=== PATIENT | female | born 1995 | race Caucasian/White ===

== ENCOUNTER 2016-10-07 10:35 | Emergency (ER) | payer OTHER ==
[~2016-10-07] VITALS: Wt 92.0 kg
[~2016-10-07 10:35] MED LIST: ACET500C5 PO; AUG875 PO; DICY10CA60 PO; FLUT16SP24 NASAL; HYDR-3498 PO; IBUP-1542 PO; ONDA4TAB35 PO; PREN1TAB31 PO
--- NOTE | 2016-10-07 11:28 | ERD ---
ER Documentation Chief Complaint Date/Time DATE: 10/07/16 TIME: 11:27 Chief Complaint low abd cramping and mild vaginal bleeding for 2 days. no unusual n/v HPI 20-year-old female who is A1 approximately 8 weeks with last menstrual period on August 13, 2016 comes emergency room with vaginal spotting as well as pelvic cramping for the past 3 days. She states that it is a slight amount of blood usually noted when she wipes. She did go to her OB this morning, they took her blood and advised that she goes to the emergency room for further evaluation. She has not had any fevers or chills. She has had one miscarriage in the past at around 6 weeks. ROS All systems reviewed and are negative except as per history of present illness. Medications Home Meds Active Scripts Acetaminophen* (Tylophen*) 500 Mg Capsule, 1 CAP PO Q6H Y for PAIN AND OR ELEVATED TEMP, #15 CAP Prov:DWAYNE AGUERO MD 05/08/16 Vits #90-Iron Fum-FA ( Formula) 1 Each Tablet, 1 TAB PO DAILY, #100 TAB Prov:DWAYNE AGUERO MD 05/08/16 Hydrocodone Bit-Acetaminophen* ([place]*) 5-325 Mg Tab, 1 TAB PO Q6 Y for SEVERE PAIN LEVEL 7-10, #10 TAB Prov:LUCY BLACKBURN NP 11/10/15 Ondansetron Hcl* (Zofran* ODT) 4 mg -ODT Tab.disper, 4 MG PO Q8 Y for NAUSEA AND /OR VOMITING, #10 TAB Prov:LUCY BLACKBURN NP 11/10/15 Dicyclomine Hcl* (Bentyl*) 10 Mg Capsule, 10 MG PO QID for abdominal cramping, # 30 CAP Prov:LUCY BLACKBURN NP 11/10/15 Acetaminophen* (Tylophen*) 500 Mg Capsule, 1 CAP PO Q6H Y for PAIN AND OR ELEVATED TEMP, #20 CAP Prov:JOSE PERSAUD 06/29/15 Ibuprofen* (Motrin*) 600 Mg Tab, 600 MG PO Q6 for 5 Days, TAB Prov:DWAYNE AGUERO MD 03/15/15 Fluticasone Propionate* (Flonase* Nasal) 50 Mcg/[place] - 16 Gm [place].susp, 1 SPRAY NASAL DAILY, #1 BOTTLE Prov:ADAN BAINS PA-C 03/01/15 Amoxicillin-Clavulanate K* (Augmentin*) 875 Mg Tab, 875 MG PO BID for 10 Days Prov:ADAN BAINS PA-C 03/01/15 Allergies Allergies: Coded Allergies: No Known Allergy (Unverified , 06/28/15) PMhx/Soc History of Surgery: No Anesthesia Reaction: No Hx Neurological Disorder: No Hx Respiratory Disorders: No Hx Cardiac Disorders: No Hx Psychiatric Problems: No Hx Miscellaneous Medical Probl: No Hx Alcohol Use: No Hx Substance Use: No Hx Tobacco Use: No Physical Exam Vitals Vital Signs Date Time Temp Pulse Resp B/P Pulse Ox O2 Delivery O2 Flow Rate FiO2 10/07/16 10:37 98.7 89 20 122/55 100 Physical Exam General: Well-developed, well-nourished. The patient appears in no acute distress. HEENT: Head is normocephalic, atraumatic. No scleral icterus. Neck: Supple. Nontender. Lungs: Clear to auscultation. Normal air movement. Heart: Regular rate and rhythm. S1 and S2 are normal. No murmurs, gallops, or rubs. Abdomen: Nondistended. Soft, no tenderness. Extremities: No clubbing or cyanosis. Moving extremities x 4. No weakness. Neurologic: Alert and oriented 3. No focal deficits. Normal speech and gait. Skin: Normal turgor. No rash or lesions. Result Diagram: 10/07/16 1155 Results 24 hrs Laboratory Tests Test 10/07/16 11:45 10/07/16 11:55 Urine Bilirubin NEGATIVE Urine Clarity CLEAR Urine Color LT. YELLOW Urine Glucose NEGATIVE% Urine Hemoglobin TRACE Urine Ketones NEGATIVE Urine Leukocyte Esterase NEGATIVE Urine Microscopic RBC 0-2/HPF Urine Microscopic WBC NONE SEEN/HPF Urine Nitrite NEGATIVE Urine Specific [place] 1.010 Urine Squamous Epithelial Cells MODERATE Urine Total Protein NEGATIVE Urine Urobilinogen 0.2 E.U./dL Urine pH 7.5 Basophils # 0.010^3/ul Basophils % 0.3% Beta HCG, Quantitative 96627.0mIU/ml Eosinophils # 0.010^3/ul Eosinophils % 0.1% Hematocrit 36.9% Hemoglobin 12.7g/dl Lymphocytes # 1.810^3/ul Lymphocytes % 19.9% Mean Corpuscular Hemoglobin 30.0pg Mean Corpuscular Hemoglobin Concent 34.4g/dl Mean Corpuscular Volume 87.4fl Mean Platelet Volume 8.2fl Monocytes # 0.510^3/ul Monocytes % 5.9% Neutrophils # 6.610^3/ul Neutrophils % 73.8% Nucleated Red Blood Cells # 0.010^3/ul Nucleated Red Blood Cells % 0.0/100WBC Platelet Count 94391^3/UL Red Blood Count 4.2210^6/ul Red Cell Distribution Width 13.7% White Blood Count 9.010^3/ul PROCEDURE: US OB. CLINICAL INDICATION: Vaginal bleeding TECHNIQUE: Transabdominal imaging of the gravid uterus is available for review COMPARISON: None available FINDINGS: There is a single intrauterine demonstrating a heart rate of 137 bpm. The crown-rump length equals 0.65 cm, giving an estimated gestational age of 6 weeks 3 days by ultrasound criteria. A small subchorionic hemorrhage is identified. The ovaries are unremarkable. IMPRESSION: 1. Single live intrauterine with an estimated gestational age of 6 weeks previous by ultrasound criteria and an estimated date of delivery of 05/30. 2. Small subchorionic hemorrhage. RPTAT: HH .Daphnie Cook MD, MD Date Time Electronically viewed and signed by .Daphnie Cook MD, MD on 10/07/2016 13 :13 Procedures/MDM ED course: This patient was seen and evaluated, I offer her pain medication including Tylenol, and she currently declined at this time. MDM: 20 year old female comes in with vaginal bleeding, differentials considered include vaginal bleeding presence of chronic hemorrhage versus threatened . She was given copies of her ultrasound and lab work, as she was asked to follow-up with her OB in 3-4 days. There is no evidence of any adnexal masses. No evidence of UTI. Type and Rh is O+, no indication for RhoGam. Departure Diagnosis: Primary Impression: Vaginal bleeding in patient at less than 20 weeks gestation Condition: VIOLA Capellan PA-C Oct 07, 2016 11:28
[2016-10-07 12:08] LABS: ADD UMIC YES; URINE BILIRUBIN (Dip) NEGATIVE (NEGATIVE); URINE BLOOD (Dip) TRACE (NEGATIVE); URINE COLOR LT. YELLOW (YELLOW); URINE GLUCOSE (Dip) NEGATIVE (NEGATIVE); URINE KETONES (Dip) NEGATIVE (NEGATIVE); URINE LEUKOCYTE ESTERASE (Dip) NEGATIVE (NEGATIVE); URINE NITRITE (Dip) NEGATIVE (NEGATIVE); URINE TOTAL PROTEIN (Dip) NEGATIVE (NEGATIVE); URINE UROBILINOGEN (Dip) 0.2 E.U./dL (0.1-1.0)
[2016-10-07 12:09] LABS: BASOPHILS % 0.3 % (0.0-2.0); EOSINOPHILS % 0.1 % (0.0-7.0); HEMATOCRIT 36.9 % (37.0-47.0); HEMOGLOBIN 12.7 g/dl (12.0-16.0); LYMPHOCYTES # 1.8 10^3/ul (0.8-2.9); LYMPHOCYTES % 19.9 % (15.0-51.0); MEAN CORPUSCULAR HGB CONC 34.4 g/dl (32.0-37.0); MEAN CORPUSCULAR VOLUME 87.4 fl (82.0-101.0); MEAN PLATELET VOLUME 8.2 fl (7.4-10.4); MONOCYTE # 0.5 10^3/ul (0.3-0.9); MONOCYTES % 5.9 % (0.0-11.0); NEUTROPHIL # 6.6 10^3/ul (1.6-7.5); NEUTROPHILS % 73.8 % (39.0-77.0); PLATELET COUNT 256 10^3/UL (140-440); RED BLOOD COUNT 4.22 10^6/ul (4.20-5.40); RED CELL DISTRIBUTION WIDTH 13.7 % (11.5-14.5)
[2016-10-07 12:13] LABS: SQUAMOUS EPITHELIAL CELL,UR MODERATE; URINE RBCS 0-2 /HPF (0)
[2016-10-07 12:14] LABS: CONDITION 1
--- NOTE | 2016-10-07 13:13 | RADRPT ---
PROCEDURE: US OB. CLINICAL INDICATION: Vaginal bleeding TECHNIQUE: Transabdominal imaging of the gravid uterus is available for review COMPARISON: None available FINDINGS: There is a single intrauterine demonstrating a heart rate of 137 bpm. The crown-rump mine th equals 0.65 cm, giving an estimated gestational age of 6 weeks 3 days by ultrasound criteria. A small subchorionic hemorrhage is identified. The ovaries are unremarkable. IMPRESSION: 1. Single live intrauterine with an estimated gestational age of 6 weeks previous by ultr asound criteria and an estimated date of delivery of 05/30/2017. 2. Small subchorionic hemorrhage. RPTAT: HH .Daphnie Cook MD, MD Date Time Electronically viewed and signed by .Daphnie Cook MD, on 10/07/2016 13:13 .G/
== END 2016-10-07 13:46 | disposition home or self-care (01) ==
LOC: FTE 10:35
DX: O20.9 Hemorrhage in early pregnancy, unspecified (principal); R10.2 Pelvic and perineal pain; Z3A.01 Less than 8 weeks gestation of pregnancy
CPT/HCPCS: 36415; 76801; 81001; 81003; 84702; 85025; 86900; 86901; Z7502

== ENCOUNTER 2016-12-09 17:32 | Emergency (ER) | payer OTHER ==
[~2016-12-09] VITALS: Ht 157.5 cm; Wt 89.0 kg
[2016-12-09 17:38] VITALS: Ht 157.5 cm; Wt 89.0 kg
[2016-12-09] MEDS ORDERED: POLY10DR LEFT EYE (18:08)
--- NOTE | 2016-12-09 18:46 | ERD ---
ER Documentation Chief Complaint Date/Time DATE: 12/09/16 TIME: 18:41 Chief Complaint pt bib self with c/o cramping for a few days, approx 15 wks HPI 21-year-old woman who is 15 weeks on previously confirmed normal ultrasound presents with "one" contraction-like cramp in the pelvis today. She states she also had one 3 days ago and her doctor told her to tomas to the emergency department if she ever has another one. She states she was also recently diagnosed with constipation and her braille teacher stated her constipation may be a continuing factor. She's had no vaginal bleeding or discharge, no dysuria, no chest pain or shortness of breath, no dizziness. Patient also complains of irritation to the left eye with some nasal congestion and sore throat. No fevers or chills. ROS All systems reviewed and are negative except as per history of present illness. Medications Home Meds Active Scripts Polymyxin/Trimethoprim* (Polytrim* Eye Drops) 10 Ml Drops, 2 DROP LEFT EYE BID, #1 BOTTLE Prov:LACIE COMBS MD 12/09/16 Acetaminophen* (Tylophen*) 500 Mg Capsule, 1 CAP PO Q6H Y for PAIN AND OR ELEVATED TEMP, #15 CAP Prov:DWAYNE AGUERO MD 05/08/16 Vits #90-Iron Fum-FA ( Formula) 1 Each Tablet, 1 TAB PO DAILY, #100 TAB Prov:DWAYNE AGUERO MD 05/08/16 Hydrocodone Bit-Acetaminophen* ([place]*) 5-325 Mg Tab, 1 TAB PO Q6 Y for SEVERE PAIN LEVEL 7-10, #10 TAB Prov:LUCY BLACKBURN NP 11/10/15 Ondansetron Hcl* (Zofran* ODT) 4 mg -ODT Tab.disper, 4 MG PO Q8 Y for NAUSEA AND /OR VOMITING, #10 TAB Prov:LUCY BLACKBURN NP 11/10/15 Dicyclomine Hcl* (Bentyl*) 10 Mg Capsule, 10 MG PO QID for abdominal cramping, # 30 CAP Prov:LUCY BLACKBURN NP 11/10/15 Acetaminophen* (Tylophen*) 500 Mg Capsule, 1 CAP PO Q6H Y for PAIN AND OR ELEVATED TEMP, #20 CAP Prov:JOSE PERSAUD 06/29/15 Ibuprofen* (Motrin*) 600 Mg Tab, 600 MG PO Q6 for 5 Days, TAB Prov:DWAYNE AGUERO MD 03/15/15 Fluticasone Propionate* (Flonase* Nasal) 50 Mcg/[place] - 16 Gm [place].susp, 1 SPRAY NASAL DAILY, #1 BOTTLE Prov:ADAN BAINS PA-C 03/01/15 Amoxicillin-Clavulanate K* (Augmentin*) 875 Mg Tab, 875 MG PO BID for 10 Days Prov:ADAN BAINS PA-C 03/01/15 Allergies Allergies: Coded Allergies: No Known Allergy (Unverified , 06/28/15) PMhx/Soc None History of Surgery: No Anesthesia Reaction: No Hx Neurological Disorder: No Hx Respiratory Disorders: No Hx Cardiac Disorders: No Hx Psychiatric Problems: No Hx Miscellaneous Medical Probl: No Hx Alcohol Use: No Hx Substance Use: No Hx Tobacco Use: No Smoking Status: Never smoker FmHx Family History: No diabetes Physical Exam Vitals Vital Signs Date Time Temp Pulse Resp B/P Pulse Ox O2 Delivery O2 Flow Rate FiO2 12/09/16 17:38 98.3 104 18 116/65 100 Physical Exam GENERAL: Well-developed, well-nourished, well-hydrated, in no apparent distress , looks nontoxic in appearance HEENT: Positive left scleral injection without purulent drainage or discharge, Moist mucous membranes, pink conjunctiva, no cervical spine tenderness or step- off deformities, no goiter, no jaundice or icterus, extraocular movements intact without pain. No submandibular induration, and no pharyngeal erythema NEURO: Alert and oriented 3, cranial nerves II through XII intact bilaterally, pupils equal round reactive to light, no focal deficits or facial asymmetry, sensation intact distally Strength 5/5 in upper and lower extremities bilaterally CARDIAC: Regular rate and rhythm, no murmurs rubs or gallops LUNGS: Clear bilaterally no wheezing crackles or stridor ABDOMEN: Soft nontender, no guarding, no rigidity, no rebound, no psoas sign no obturator sign. Normoactive bowel sounds SKIN: Warm and dry to touch, no abrasions, contusions, or hematomas, no lacerations, no ecchymosis, no target lesions, and without ulcers EXTREMITIES: No clubbing cyanosis or edema, calves are bilaterally symmetrical, no Homans sign, no popliteal cord sign. Distal pulses equal and bilateral PSYCH: Normal affect without agitation or irritability Procedures/MDM Bedside limited lower abdominal ultrasound was performed by me. I documented movement and observed normal pulse. Reassurance was provided to the patient. Patient will be discharged with instructions to follow-up with her braille teacher I also prescribed her Polytrim ophthalmic given her left-sided conjunctival injection. She most likely has a URI. I suspect a [place] contractions today and have no indication for any further intervention, imaging, or admission. Differential diagnoses considered, included but not limited to ovarian torsion, miscarriage, constipation, ectopic , aortic dissection, abdominal aortic aneurysm, sepsis, stroke, meningitis, encephalitis, pneumonia, appendicitis, cholecystitis, bowel obstruction, pyelonephritis, nephrolithiasis , cystitis, as well as metabolic, hematologic, and electrolyte abnormalities. As well as abscess, cellulitis, fractures, and dislocations. Patient feels much better at this time, and vital signs are normal, symptoms have improved. I did give strict instructions to return to the ED if symptoms continue or worsen, patient will otherwise follow-up with primary care physician. Patient understood instructions and agreed to plan. Departure Diagnosis: Primary Impression: Viral conjunctivitis Additional Impression: Second trimester Condition: Good Patient Instructions: Conjunctivitis, Viral LACIE COMBS MD Dec 09, 2016 18:46
== END 2016-12-09 18:40 | disposition home or self-care (01) ==
LOC: FTE 17:32
DX: O99.89 Other specified diseases and conditions complicating pregnancy, childbirth and the puerperium (principal); B30.9 Viral conjunctivitis, unspecified; Z3A.15 15 weeks gestation of pregnancy
CPT/HCPCS: 99283

== ENCOUNTER 2017-01-10 09:39 | Outpatient (CLI) | payer OTHER ==
[~2017-01-10] VITALS: Ht 157.5 cm; Wt 87.6 kg
[~2017-01-10 09:39] MED LIST changes: +POLY10DR LEFT EYE
[2017-01-10] MEDS ORDERED: FERR134T PO (09:55)
[2017-01-10 09:56] VITALS: BP 112/61; RESP 16; Ht 157.5 cm; Wt 87.6 kg
[2017-01-10 10:41] LABS: URINE BLOOD (Dip) POC Negative (NEGATIVE)
--- NOTE | 2017-01-10 10:48 | TRIAGE ---
OB Triage Datetime Report Generated by CPN: 01/10/2017 10:47 Datetime: 01/10/2017 10:14 Vaginal Exam Dilatation (cms): 0.0 Datetime: 01/10/2017 10:13 Vaginal Exam Dilatation (cms): 2.0 Datetime: 01/10/2017 10:09 Comments: DR. FOROOHAR NOTIFIED OF PATIENT- WILL COME SEE PATIENT WHEN HE IS FINISHED ASSISTING I N C/SECTION Datetime: 01/10/2017 10:00 Stage of : OB Triage Assessment Type: Triage Maternal Assessment Level of Consciousness: Fully Conscious DTR's/Clonus: DTRs 2+; No Clonus Headache: Denies Blurred Vision: No Respiratory Effort: Unlabored; Regular Rhythm; Equal Expansion Breath Sounds, Left: Clear and Equal Breath Sounds, Right: Clear and Equal Nausea/Vomiting: Denies RUQ Epigastric Pain: Denies Lower Extremities Edema: None Degree: None Upper Extremities Edema: None Degree: None Facial Edema: None Temperature Route: Oral Fall Risk Assessment History of Falling: (0) No Secondary Diagnosis: (0) No Ambulatory Aid: (0) Bedrest/Nurse Assist IV Therapy: (0) No Gait: (0) Normal/Bedrest/Immobile Mental Status: (0) Oriented to Own Ability Fall Score: 0 Fall Risk Score Definition: No Risk: No action required Labor Evaluation Frequency: 0 Monitor Mode: External Heart Rate Monitor Mode: Doppler (Annotations: 145) Pain Assessment Pain Scale: 0 Pain Presence: None/Denies Pain Type: N/A Datetime: 01/10/2017 09:59 Time of Arrival: 01/10/2017 09:35 EGA: 20.2 Arrived By: Ambulatory Arrived From: Home Chief Complaint: DECREASED MOVEMENT Movement: Present Rupture of Membranes: Denies Vaginal Discharge: Denies Recent Sexual Intercouse: Denies Abdominal Trauma: Not Applicable Additional Patient Complaints: TOCO- FHT DOPPLER Time Provider Notified: 01/10/2017 10:05 Provider Notified: DR. RAMSEY
--- NOTE | 2017-01-10 11:08 | CONS ---
Date/Time of Note Date/Time of Note DATE: 01/10/17 TIME: 10:59 Consultation Date/Type/Reason Admit Date/Time January 10, 2017 OB triage consult Reason for Consultation This patient is a 21 years old 2 para 0 1 with due date of May 28, 2017 which makes her 20 weeks and 1 day today. She came to the OB triage complaining of low movement since this morning No other complaint On examination she is a well-developed well-nourished lady. Abdomen is soft no contractions heart tone is normal. Her general vital signs appears to be within normal limits ; blood pressure 112/ 61 pulse rate 80 respiration 16 and temperature 98.2 heart rate running somewhere between 145 and 154. Laboratory Tests Test 01/10/17 10:42 Bedside Urine pH (LAB) 7.0 Bedside Urine Protein (LAB) Trace Bedside Urine Glucose (UA) Negative Bedside Urine Ketones (LAB) Negative Bedside Urine Blood Negative Bedside Urine Nitrite (LAB) Negative Bedside Urine Leukocyte Esterase (L Trace Her urinalysis showed trace protein, trace leukocytes. We will send her urine for culture and sensitivity The ultrasound at this time is not available however she does not seem to have any major problem with her . We will discharge her home with recommendation to return in the hospital if discomfort or pain continues Constitutional: No chills, No diaphoresis, No disoriented, No febrile, No improved, No no complaints, No other, No poor po, No requiring IVF, No requiring O2 Eyes: No discharge, No no complaints, No other, No pain, No redness, No visual change ENT: No bleeding, No congestion, No discharge, No dysphagia, No no complaints, No other, No pain, No sore throat Respiratory: No cough, No no complaints, No other, No pain, No pleuritic pain, No shortness of breath, No sputum, No wheezing Cardiovascular: No chest pain, No edema, No lightheadedness, No no complaints, No orthopenea, No other, No palpitations, No paroxysmal nocturnal dyspnea Gastrointestinal: No blood, No constipation, No decreased appetite, No diarrhea , No flatus, No nausea, No no complaints, No other, No pain, No passing stool, No vomiting Genitourinary: other (No CVA tenderness), No bleeding, No discharge, No dysuria, No flank pain, No hematuria, No no complaints Musculoskeletal: No back pain, No bone/joint pain, No neck pain, No no complaints, No other, No restricted range of motion, No swelling Skin: No bruising, No erythema, No laceration, No no complaints, No other, No pruritis, No rash, No skin lesions Neurologic: No confusion, No dizziness, No focal-weakness, No headache, No no complaints, No other, No seizure, No syncope Endocrine: No dry skin, No no complaints, No other, No polydypsia, No polyuria , No temp intolerance Lymphatic: No adenopathy, No lymphadema, No no complaints, No other, No tender nodes Psychological: other (verbal argument with her boyfriend and is upset.), No anxiety, No confusion, No depression, No nl mood/affect, No no complaints , No suicidal Social History Smoking Status: Never smoker Exam/Review of Systems Vital Signs Vitals Vital Signs Date Time Temp Pulse Resp B/P Pulse Ox O2 Delivery O2 Flow Rate FiO2 01/10/17 09:56 98.2 16 112/61 Results Results 24 hrs Laboratory Tests Test 01/10/17 10:42 Bedside Urine pH (LAB) 7.0 Bedside Urine Protein (LAB) Trace H Bedside Urine Glucose (UA) Negative Bedside Urine Ketones (LAB) Negative Bedside Urine Blood Negative Bedside Urine Nitrite (LAB) Negative Bedside Urine Leukocyte Esterase (L Trace H AIDAN HALE MD January 10, 2017 11:08 AIDAN HALE MD January 10, 2017 11:08
== END 2017-01-10 10:55 | disposition home or self-care (01) ==
LOC: OBT 09:39 → L-D 09:40 → OBT 10:55
PROVIDERS: ATTEND Obstetrics & Gynecology
DX: O36.8120 Decreased fetal movements, second trimester, not applicable or unspecified (principal); Z3A.20 20 weeks gestation of pregnancy
CPT/HCPCS: 81003; 87086; G0463

== ENCOUNTER 2017-02-01 12:35 | Inpatient (IN) | payer OTHER ==
[~2017-02-01] VITALS: Ht 157.5 cm; Wt 83.2 kg
[~2017-02-01 12:35] MED LIST changes: -ACET500C5 PO; -AUG875 PO; -DICY10CA60 PO; +FERR134T PO; -FLUT16SP24 NASAL; -HYDR-3498 PO; -IBUP-1542 PO; -ONDA4TAB35 PO; -POLY10DR LEFT EYE
[2017-02-01 13:05] VITALS: BP 123/70; PULSE 100; RESP 20
[2017-02-01 13:21] VITALS: Ht 157.5 cm; Wt 83.2 kg
[2017-02-01] MEDS ORDERED: CALC600T5 PO (13:26)
--- NOTE | 2017-02-01 14:05 | RADRPT ---
PROCEDURE: US OB. CLINICAL INDICATION: demise. TECHNIQUE: Multiple sonographic images of the pelvis were obtained. Transabdominal imaging only w as performed. The images were reviewed on a PACS workstation. COMPARISON: Pelvic ultrasound dated 10/07/2016. FINDINGS: There is a single intrauterine gestation. No cardiac activity is identified. There is a cephalic presentation. Measurements were made in order to determine age. The results are as follows: BPD = 4.66 cm HC = 17.27 cm AC = 13.32 cm FL = 2.71 cm Estimated gestational age of approximately 19 weeks 0 days. The estimated date of delivery is 06/28/2017. The EFW = 254.08, at the less than 3% percentile. The placenta is anterior, grade 1. There is no evidence for an abruption or placenta previa. The MVP equals 1 cm. IMPRESSION: 1. Single intrauterine gestation with an estimated gestational age of 19 weeks 0 days and no cardiac activity, consistent with a failed early . Short interval follow-up is recommended. These findings discussed with Rizwana Velez the patient's nurse at 1402 hours on 02/01/2017. RPTAT: [facility] .Cedric Stern MD, Date Time Electronically viewed and signed by .Cedric Stern MD, MD on 02/01/2017 14:04 .P/
[2017-02-01 14:42] LABS: ADD SCAN DIFF NO
[2017-02-01 14:46] LABS: BASOPHILS % 0.1 % (0.0-2.0); EOSINOPHILS % 0.1 % (0.0-7.0); HEMATOCRIT 38.2 % (37.0-47.0); HEMOGLOBIN 12.6 g/dl (12.0-16.0); LYMPHOCYTES # 2.3 10^3/ul (0.8-2.9); LYMPHOCYTES % 29.7 % (15.0-51.0); MEAN CORPUSCULAR HEMOGLOBIN 29.6 pg (29.0-33.0); MEAN CORPUSCULAR VOLUME 89.7 fl (82.0-101.0); MEAN PLATELET VOLUME 10.3 fl (7.4-10.4); MONOCYTE # 0.5 10^3/ul (0.3-0.9); MONOCYTES % 5.7 % (0.0-11.0); NEUTROPHILS % 63.9 % (39.0-77.0); PLATELET COUNT 233 10^3/UL (140-415); RED BLOOD COUNT 4.26 10^6/ul (4.20-5.40); RED CELL DISTRIBUTION WIDTH 13.3 % (11.5-14.5); WHITE BLOOD COUNT 7.9 10^3/ul (4.8-10.8)
[2017-02-01 15:04] LABS: INR 0.88; PROTIME 11.9 Sec (12.2-14.2); PT RATIO 0.9
[2017-02-01 15:05] LABS: PARTIAL THROMBOPLASTIN TIME 30.7 Sec (25.0-35.0)
[2017-02-01 15:29] LABS: T3 UPTAKE 18.3 % (23.5-40.5)
[2017-02-01] MEDS: MISOPROSTOL 200 MCG TAB VAG SCH ×3 (15:31→22:30)
[2017-02-01] MEDS: LACTATED RINGER'S 1,000 ML IV SCH ×2 (15:31→21:04)
[2017-02-01] MEDS ORDERED: LACTATED RINGER'S 1,000 ML IV SCH (15:42)
[2017-02-01] MEDS ORDERED: OXYTOCIN 30 UNITS/LR 500 ML IV PRN (16:00)
[2017-02-01] MEDS ORDERED: IBUPROFEN 600 MG TAB PO ONE (16:00)
[2017-02-01] MEDS ORDERED: CARBOPROST 250 MCG INJ IM PRN (16:00)
[2017-02-01] MEDS ORDERED: MISOPROSTOL 200 MCG TAB PR PRN (16:00)
[2017-02-01] MEDS ORDERED: METHYLERGONOVINE 0.2 MG INJ IM PRN (16:00)
[2017-02-01] MEDS ORDERED: LACTATED RINGER'S 1,000 ML IV PRN (16:00)
[2017-02-01] MEDS ORDERED: LIDOCAINE 1% (MPF) 30 ML INJ INJ PRN (16:00)
[2017-02-01] MEDS ORDERED: OXYTOCIN 30 UNITS/LR 500 ML IV SCH ×2 (20:30)
[2017-02-01] MEDS: BUTORPHANOL 2 MG INJ IV PRN (21:53)
[2017-02-02] MEDS: BUTORPHANOL 2 MG INJ IV PRN (01:37)
[2017-02-02] MEDS ORDERED: ONDANSETRON 4 MG INJ IV ONE (03:12)
--- NOTE | 2017-02-02 03:52 | LDN ---
Date/Time of Note Date/Time of Note DATE: 02/02/17 TIME: 03:44 Delivery Summary Patient had been admitted by Dr. Lau due to demise at 23 weeks for induction of labor. History of SAB in prior at 9 weeks She had been underging induction with cytotec. I was called by RN . informed that the fetus and amniotic bag as well as placenta ( Enbloc) has been passed, Presented to the delivery room. Fetus inside the intact bag and placenta noled, no perineal laceration. Fundus was firm . EBL: 100 cc, Amniotic bag opened, Yellowish greenish fluid noted , ? Meconium . Fetus' head enalarged and filled with liquid, baby boy. Echymossis on the abdomen and lower extremities, Abdomen enlarged with fluid filled. Baby partial macerated, Placenta intact. Placenta Delivered: Spontaneously Episiotomy: No Anesthesia type: None Sponge & Needle done & correct: Yes Any foreign bodies felt in the: No Problems: Delivery Information Sex Sex: male Apgars 1 Minute: 0 5 Minute: 0 Mother & Baby Disposition Disposition Placenta will be sent to pathology as well as culture and gram stain Patient has labs including normal FBS, normal RPR, and normal TFT. Thrombophilia labs ordered CMv for maternal urine ordered as well as Toxocplasmosis antibody Offered to parents about Autopsy.if desired, will let us know insole department worker consultation about grief reaction requested, Antibody screen and KB ordered prior to admission and negative JAIRO HOYT MD Feb 02, 2017 03:52
[2017-02-02] MEDS: LACTATED RINGER'S 1,000 ML IV* SCH ×3 (06:28→22:28)
[2017-02-02] MEDS ORDERED: CARBOPROST 250 MCG INJ IM PRN (06:30)
[2017-02-02] MEDS ORDERED: DIPHENHYDRAMINE 25 MG CAP PO PRN (06:30)
[2017-02-02] MEDS ORDERED: ONDANSETRON 4 MG INJ IV PRN (06:30)
[2017-02-02] MEDS ORDERED: ZOLPIDEM 5 MG TAB PO PRN (06:30)
[2017-02-02] MEDS ORDERED: METHYLERGONOVINE 0.2 MG INJ IM PRN (06:30)
[2017-02-02] MEDS ORDERED: OXYTOCIN 30 UNITS/LR 500 ML IV PRN (06:30)
[2017-02-02] MEDS ORDERED: WITCH HAZEL/GLYCERIN PAD PR PRN (06:30)
[2017-02-02] MEDS ORDERED: ACETAMINOPHEN 325 MG TAB PO PRN (06:30)
[2017-02-02] MEDS ORDERED: MISOPROSTOL 200 MCG TAB PR PRN (06:30)
[2017-02-02 06:42] LABS: HEMATOCRIT 33.8 % (37.0-47.0); HEMOGLOBIN 11.5 g/dl (12.0-16.0)
[2017-02-02] MEDS: IBUPROFEN 600 MG TAB PO SCH ×3 (06:49→18:09)
[2017-02-02 08:10] LABS: BILIRUBIN,INDIRECT 0.1 mg/dl (0-1.1); BILIRUBIN,TOTAL 0.1 mg/dl (0.2-1.3); TOTAL PROTEIN 6.3 g/dl (6.1-8.1)
[2017-02-02] MEDS: SENNA/DOCUSATE NA (8.6MG/50MG) TAB PO SCH (12:36)
[2017-02-02 20:38] LABS: BARBITURATES Negative (NEGATIVE); BENZODIAZEPINES Negative (NEGATIVE); CANNABINOIDS Negative (NEGATIVE); COCAINE Negative (NEGATIVE); OPIATES Negative (NEGATIVE)
[2017-02-03] MEDS: IBUPROFEN 600 MG TAB PO SCH ×2 (00:26→05:58)
[2017-02-03] MEDS: SENNA/DOCUSATE NA (8.6MG/50MG) TAB PO SCH ×2 (00:26→09:13)
[2017-02-03] MEDS ORDERED: DIPHTH/TET/ACEL PERTUSS (ADULT) 0.5 ML VIAL IM* ONE (13:00)
--- NOTE | 2017-02-03 13:50 | DS ---
Date/Time of Note Date/Time of Note DATE: 02/03/17 TIME: 13:50 Discharge Summary Admission/Discharge Info Admit Date/Time February 01, 2017 at 12:35 Discharge Date/Time Final Diagnosis demise at 23 weeks Patient Condition: Serious Hospital Course unremarkable Home Meds Active Scripts Vits #90-Iron Fum-FA ( Formula) 1 Each Tablet, 1 TAB PO DAILY, #100 TAB Prov:DWAYNE AGUERO MD 05/08/16 Reported Medications Calcium Carbonate (CALCIUM) 600 Mg Tablet, 600 MG PO, TAB 02/01/17 Ferrous Sulfate (Iron) 134 Mg Tablet, 134 MG PO DAILY, TAB 01/10/17 Primary Care Provider Not On Staff Doctor Pending Labs Laboratory Tests Test 02/02/17 19:30 Urine Opiates Screen Negative (NEGATIVE) Urine Barbiturates Negative (NEGATIVE) Urine Amphetamines Screen Negative (NEGATIVE) Urine Benzodiazepines Screen Negative (NEGATIVE) Urine Cocaine Screen Negative (NEGATIVE) Urine Cannabinoids Negative (NEGATIVE) BOBY RAMSEY MD Feb 03, 2017 13:50
[2017-02-03 18:47] LABS: CYTOMEGALOVIRUS ANTIBODY (IGG) >10.00 U/mL
[2017-02-04] MEDS ORDERED: MEASLES,MUMPS,RUBELLA VACCINE INJ SC* ONE (09:00)
[2017-02-04] MEDS ORDERED: VARICELLA VACCINE LIVE/PF 1,350 UNIT/0.5 ML ML SC* ONE (09:00)
[2017-02-04 14:18] LABS: PROTEIN C 140 % normal (70-180)
[2017-02-04 16:20] LABS: TOXOPLASMA ANTIBODY < OR = 0.90
== END 2017-02-03 16:25 | disposition home or self-care (01) | DRG 775 ==
LOC: L-D 12:35 → OBG 02-02 10:15 → EDSTATUS 05-28 12:32
PROVIDERS: ADMIT Obstetrics & Gynecology; ATTEND Obstetrics & Gynecology
PROC: 10E0XZZ Delivery of Products of Conception, External Approach (ICD-10-PCS; principal; 2017-02-02)
DX: O36.4XX0 Maternal care for intrauterine death, not applicable or unspecified (principal); Z37.1 Single stillbirth; Z3A.23 23 weeks gestation of pregnancy
CPT/HCPCS: 76805; 80076; 80307; 81240; 82947; 83036; 83890; 84436; 84479; 85014; 85018; 85025; 85302; 85305; 85362; 85384; 85460; 85610; 85613; 85730; 86147; 86592; 86644; 86777; 86850; 86900; 86901; 87070; 87340; 87496; 88307; 90715; J0595; J2590; J7120

== ENCOUNTER 2017-06-06 13:46 | Emergency (ER) | payer OTHER ==
[~2017-06-06] VITALS: Ht 162.6 cm; Wt 89.0 kg
[~2017-06-06 13:46] MED LIST changes: +CALC600T5 PO; +IBUP-1542 PO
[2017-06-06 13:48] VITALS: Ht 162.6 cm; Wt 89.0 kg
--- NOTE | 2017-06-06 16:30 | RADRPT ---
PROCEDURE: XR Cervical Spine. CLINICAL INDICATION: Neck pain. TECHNIQUE: AP, lateral, and open mouth views of the cervical spine were obtained. COMPARISON: None FINDINGS: The cervical lordosis is maintained. The vertebral body and disk space heights are normal. No acut e fracture or subluxation is seen. The atlantoaxial joint, odontoid process, and lateral masses are intact. No prevertebral soft tissue abnormality is seen. IMPRESSION: Unremarkable cervical spine series. RPTAT: HPNM Physician Renato Date Time Electronically viewed and signed by Physician Renato on 06/06/2017 16:30 /
--- NOTE | 2017-06-06 16:31 | RADRPT ---
PROCEDURE: XR Shoulder. CLINICAL INDICATION: Left shoulder pain. TECHNIQUE: 3 views of the left shoulder were obtained. COMPARISON: None FINDINGS: No acute fracture or dislocation is seen. The glenohumeral joint and acromioclavicular joint are wi thin normal limits. The osseous structures are well mineralized. The soft tissue structures are in tact. The visualized portions of the left clavicle andchest appear unremarkable. IMPRESSION: Unremarkable left shoulder series. RPTAT: HPNM Physician Renato Date Time Electronically viewed and signed by Clemente Schmitz Physician on 06/06/2017 16:31 /
[2017-06-06] MEDS ORDERED: KETOROLAC 60 MG INJ IM STA (16:33)
[2017-06-06] MEDS ORDERED: IBUP-1542 PO (16:46)
[2017-06-06] MEDS ORDERED: TRAM50TA2 PO (16:46)
--- NOTE | 2017-06-06 16:51 | ERD ---
ER Documentation Chief Complaint Date/Time DATE: 06/06/17 TIME: 16:49 Chief Complaint left arm pain , no trauma HPI This 21-year-old female complains of left arm pain for the last few days. She denies any history of trauma. The pain is most in her left shoulder and radiates to her left hand and has a sensation of numbness or tingling. Denies any previous neck injury. He denies any weakness, fevers, bowel bladder incontinence, additional symptoms. ROS All systems reviewed and are negative except as per history of present illness. Medications Home Meds Active Scripts Ibuprofen* (Motrin*) 600 Mg Tab, 600 MG PO Q6, #20 TAB Prov:DWAYNE AGUERO MD 06/06/17 Tramadol HCl (Tramadol HCl) 50 Mg Tablet, 50 MG PO Q4 Y for PAIN, #20 TAB Prov:DWAYNE AGUERO MD 06/06/17 Ibuprofen* (Motrin*) 600 Mg Tab, 600 MG PO Q6, #20 TAB Prov:ZOHRA DC PA-C 05/23/17 Vits #90-Iron Fum-FA ( Formula) 1 Each Tablet, 1 TAB PO DAILY, #100 TAB Prov:DWAYNE AGUERO MD 05/08/16 Reported Medications Calcium Carbonate (CALCIUM) 600 Mg Tablet, 600 MG PO, TAB 02/01/17 Ferrous Sulfate (Iron) 134 Mg Tablet, 134 MG PO DAILY, TAB 01/10/17 Allergies Allergies: Coded Allergies: No Known Drug Allergies (Verified Allergy, Unknown, 06/06/17) PMhx/Soc Medical and Surgical Hx: pt denies Medical Hx, pt denies Surgical Hx History of Surgery: No Anesthesia Reaction: No Hx Neurological Disorder: No Hx Respiratory Disorders: No Hx Cardiac Disorders: No Hx Psychiatric Problems: No Hx Miscellaneous Medical Probl: No Hx Alcohol Use: No Hx Substance Use: No Hx Tobacco Use: No Smoking Status: Never smoker Physical Exam Vitals Vital Signs Date Time Temp Pulse Resp B/P Pulse Ox O2 Delivery O2 Flow Rate FiO2 06/06/17 13:48 98.3 72 18 124/72 99 Physical Exam Const: [], [id number]. Head: Atraumatic Eyes: Normal Conjunctiva ENT: Normal External Ears, Nose and Mouth. Neck: Full range of motion..~ No meningismus. Resp: Clear to auscultation bilaterally Cardio: Regular rate and rhythm, no murmurs Abd: Soft, non tender, non distended. Normal bowel sounds Skin: No petechiae or rashes Back: No midline or flank tenderness Ext: No cyanosis, or edema . mild reproducible tenderness with passive range of motion left shoulder. No deformities or skin changes. No pain with passive range of motion of the neck. Neur: Awake and alert with normal gait. No appreciable focal neurologic deficits. Psych: Normal Mood and Affect Results 24 hrs Current Medications Medications (Trade) Dose Ordered Sig/Sandra Route PRN Reason Start Time Stop Time Status Last Admin Dose Admin Ketorolac Tromethamine (Toradol) 60 mg ONCE STAT IM 06/06/17 16:33 06/06/17 16:34 DC Procedures/MDM X-ray C spine 3V Interpreted by me: Bones: [No fracture] Joints: [No dislocation] Foreign body: [None] impression-normal C-spine x-ray X-ray left shoulder 3V Interpreted by me: Bones: No fracture Joints: No dislocation Foreign body: None EKG: Rate/Rhythm: [Normal Sinus Rhythm] rate equals 91 QRS, ST, T-waves: [No changes consistent w/ acute ischemia] Impression: [No evidence of ischemia or arrhythmia] impression have a normal EKG Patient presents with left arm pain for last 3 days. Current signs or symptoms suggest cervical radicular pain. There is no evidence of deficits, sepsis, signs to suggest meningitis, additional emergent causes of presenting complaints. She will treated with tramadol, ibuprofen, return precautions and primary care follow-up. The patient was stable with no new complaints during the ER course. Clinically, there is no current evidence to suggest meningitis, sepsis, acute abdomen, pneumonia, acute coronary syndrome, pulmonary embolism, or any other emergent condition appearing to require further evaluation or hospitalization. The patient should certainly return for any new or worsening symptoms per the aftercare instructions. They should otherwise follow-up with her primary care doctor for reevaluation this week. Departure Diagnosis: Primary Impression: Pain of left arm Condition: Stable Patient Instructions: Radiculopathy, Cervical, Shoulder Pain (Uncertain Cause) Referrals: JOSE GUILLEN MD, ANDREW M MD KIM, JAMES Additional Instructions: Terminations normal today. Suspect symptoms due to pinched nerve. Follow-up with primary doctor consider neurology evaluation for persistent or worsening symptoms. DWAYNE AGUERO MD Jun 06, 2017 16:51
[2017-06-06 17:21] VITALS: BP 112/64; PULSE 71; RESP 19; TEMP 98.1
== END 2017-06-06 17:23 | disposition home or self-care (01) ==
LOC: FTE 13:46
DX: M79.602 Pain in left arm (principal)
CPT/HCPCS: 72040; 73030; 93005; 96372; J1885; Z7502

== ENCOUNTER 2017-07-08 19:32 | Emergency (ER) | payer OTHER ==
[~2017-07-08] VITALS: Ht 157.5 cm; Wt 98.9 kg
[~2017-07-08 19:32] MED LIST changes: +TRAM50TA2 PO
[2017-07-08 19:34] VITALS: Ht 157.5 cm; Wt 98.9 kg
[2017-07-08] MEDS ORDERED: IBUP400T22 PO (20:12)
[2017-07-08] MEDS ORDERED: CYCL-319 PO (20:12)
[2017-07-08] MEDS ORDERED: PRED20TA PO (20:13)
--- NOTE | 2017-07-08 20:49 | ERD ---
ER Documentation Chief Complaint Chief Complaint low back pain x 1 day. denies injury HPI Patient is a 21-year-old female presenting to the emergency department with complaints of bilateral low back pain worsening for 1 day. She reports radiation down posterior bilateral lower extremities. She was lifting her nephew and was jumping up and down with him and believe she may have injured her back doing this. Symptoms are constant., She has taken no medication for relief of symptoms. She denies fevers, chills, loss of bowel or bladder function, or other symptoms at this time. ROS All systems reviewed and are negative except as per history of present illness. Medications Home Meds Active Scripts Prednisone* (Prednisone*) 20 Mg Tab, 40 MG PO DAILY for 5 Days, #10 TAB Prov:CLAIRE QUILES PA-C 07/08/17 Ibuprofen* (Motrin*) 400 Mg Tab, 400 MG PO Q6, #20 TAB Prov:CLAIRE QUILES PA-C 07/08/17 Cyclobenzaprine Hcl* (Cyclobenzaprine Hcl*) 10 Mg Tablet, 10 MG PO TID, #15 TAB Prov:CLAIRE QUILES PA-C 07/08/17 Ibuprofen* (Motrin*) 600 Mg Tab, 600 MG PO Q6, #20 TAB Prov:DWAYNE AGUERO MD 06/06/17 Tramadol HCl (Tramadol HCl) 50 Mg Tablet, 50 MG PO Q4 Y for PAIN, #20 TAB Prov:DWAYNE AGUERO MD 06/06/17 Ibuprofen* (Motrin*) 600 Mg Tab, 600 MG PO Q6, #20 TAB Prov:ZOHRA DC PA-C 05/23/17 Vits #90-Iron Fum-FA ( Formula) 1 Each Tablet, 1 TAB PO DAILY, #100 TAB Prov:DWAYNE AGUERO MD 05/08/16 Reported Medications Calcium Carbonate (CALCIUM) 600 Mg Tablet, 600 MG PO, TAB 02/01/17 Ferrous Sulfate (Iron) 134 Mg Tablet, 134 MG PO DAILY, TAB 01/10/17 Allergies Allergies: Coded Allergies: No Known Drug Allergies (Verified Allergy, Unknown, 07/08/17) PMhx/Soc History of Surgery: No Anesthesia Reaction: No Hx Neurological Disorder: No Hx Respiratory Disorders: No Hx Cardiac Disorders: No Hx Psychiatric Problems: No Hx Miscellaneous Medical Probl: No Hx Alcohol Use: No Hx Substance Use: No Hx Tobacco Use: No Smoking Status: Never smoker Physical Exam Vitals Vital Signs Date Time Temp Pulse Resp B/P Pulse Ox O2 Delivery O2 Flow Rate FiO2 07/08/17 19:34 98.3 98 20 141/87 98 Physical Exam Const: Nontoxic, well-appearing female in no acute distress. Head: Atraumatic Eyes: Normal Conjunctiva ENT: Normal External Ears, Nose and Mouth. Back: No midline or flank tenderness. Positive straight leg raise test bilaterally. Ext: No cyanosis, or edema Neur: Awake and alert Psych: Normal Mood and Affect Procedures/MDM 21-year-old female presenting for back pain with sciatica. Diagnosis is straightforward, vital signs are within normal limits. Low suspicion for cauda equina, epidural abscess, or other emergent conditions. Patient stable for outpatient management with a prescription for prednisone, ibuprofen, and Flexeril. No evidence of life-threatening pathology at time of discharge. Pt/family in agreement with discharge plan/diagnosis. Pt/family advised to return immediately with any new or worsening symptoms. Follow-up with primary care physician within the next 1-2 days. Departure Diagnosis: Primary Impression: Back pain with sciatica Condition: Fair Patient Instructions: Back Pain W/ Sciatica Additional Instructions: Follow up with your PCP within the next 1-3 days for a repeat evaluation. If you require a referral to a specialist, your Primary Care Provider may be able to provide this for you. In most patient cases, a referral is not required. If you have further questions regarding this matter, please ask your Primary Care Provider. Return the the emergency department immediately if symptoms worsen or change. If you have any questions regarding medications, ask your pharmacist or us before you leave. If any adverse reactions, occur while taking your medications, discontinue the treatment and return to the emergency department immediately. If any new or worsening symptoms, uncontrolled fevers, or other unexplained symptoms occur, return to the emergency department immediately. Take your medications as directed, and complete the entire course of treatment. CLAIRE QUILES PA-C Jul 08, 2017 20:49
== END 2017-07-08 22:56 | disposition home or self-care (01) ==
LOC: FTE 19:32
DX: M54.41 Lumbago with sciatica, right side (principal); M54.42 Lumbago with sciatica, left side
CPT/HCPCS: 99284

== ENCOUNTER 2017-08-30 17:35 | Emergency (ER) | payer OTHER ==
[~2017-08-30] VITALS: Wt 99.2 kg
[~2017-08-30 17:35] MED LIST changes: +CYCL-319 PO; +IBUP400T22 PO; +PRED20TA PO
[2017-08-30] MEDS ORDERED: DICY10CA60 PO (19:00)
[2017-08-30] MEDS ORDERED: ONDA4TAB14 PO (19:00)
[2017-08-30] MEDS ORDERED: IBUP-1542 PO (19:00)
--- NOTE | 2017-08-30 19:04 | ERD ---
ER Documentation Chief Complaint Chief Complaint AP HPI 21-year-old female presents here to emergency department for complaints of abdominal pain vomiting and diarrhea that started 2 days ago. Patient describes abdominal pain as cramping pain, 4/10 scale, intermittent, accompanied with vomiting and diarrhea. Patient had multiple episodes of diarrhea and 4 episodes of vomiting today. Patient is vomiting blood in the stool or black stool. Patient denies any recent travel. Patient denies any sick contacts. Patient did not take any medications to help with symptoms. Patient denies any fever or chills. ROS All systems reviewed and are negative except as per history of present illness. Medications Home Meds Active Scripts Ibuprofen* (Motrin*) 600 Mg Tab, 600 MG PO Q6H Y for PAIN AND OR ELEVATED TEMP, #30 TAB Prov:LUCY BLACKBURN NP 08/30/17 Ondansetron (Ondansetron Odt) 4 Mg Tab.rapdis, 4 MG PO Q6H Y for NAUSEA AND/OR VOMITING, #20 TAB Prov:LUCY BLACKBURN NP 08/30/17 Dicyclomine Hcl* (Bentyl*) 10 Mg Capsule, 20 MG PO QID, #30 CAP Prov:LUCY BLACKBURN NP 08/30/17 Prednisone* (Prednisone*) 20 Mg Tab, 40 MG PO DAILY for 5 Days, #10 TAB Prov:CLAIRE QUILES PA-C 07/08/17 Ibuprofen* (Motrin*) 400 Mg Tab, 400 MG PO Q6, #20 TAB Prov:CLAIRE QUILES PA-C 07/08/17 Cyclobenzaprine Hcl* (Cyclobenzaprine Hcl*) 10 Mg Tablet, 10 MG PO TID, #15 TAB Prov:CLAIRE QUILES PA-C 07/08/17 Ibuprofen* (Motrin*) 600 Mg Tab, 600 MG PO Q6, #20 TAB Prov:DWAYNE AGUERO MD 06/06/17 Tramadol HCl (Tramadol HCl) 50 Mg Tablet, 50 MG PO Q4 Y for PAIN, #20 TAB Prov:DWAYNE AGUERO MD 06/06/17 Ibuprofen* (Motrin*) 600 Mg Tab, 600 MG PO Q6, #20 TAB Prov:ZOHRA DC PA-C 05/23/17 Vits #90-Iron Fum-FA ( Formula) 1 Each Tablet, 1 TAB PO DAILY, #100 TAB Prov:DWAYNE AGUERO MD 05/08/16 Reported Medications Calcium Carbonate (CALCIUM) 600 Mg Tablet, 600 MG PO, TAB 02/01/17 Ferrous Sulfate (Iron) 134 Mg Tablet, 134 MG PO DAILY, TAB 01/10/17 Allergies Allergies: Coded Allergies: No Known Drug Allergies (Verified Allergy, Unknown, 07/08/17) PMhx/Soc Medical and Surgical Hx: pt denies Medical Hx, pt denies Surgical Hx History of Surgery: No Anesthesia Reaction: No Hx Neurological Disorder: No Hx Respiratory Disorders: No Hx Cardiac Disorders: No Hx Psychiatric Problems: No Hx Miscellaneous Medical Probl: No Hx Alcohol Use: No Hx Substance Use: No Hx Tobacco Use: No FmHx Family History: No coronary disease, No diabetes, No other Physical Exam Vitals Vital Signs Date Time Temp Pulse Resp B/P Pulse Ox O2 Delivery O2 Flow Rate FiO2 08/30/17 17:38 99.1 87 18 132/72 99 Physical Exam GENERAL: The patient is well developed and appropriate for usual state of health, in no apparent distress. CHEST: Clear to auscultation bilaterally. There are no rales, wheezes or rhonchi. HEART: Regular rate and rhythm. No murmurs, clicks, rubs or gallops. No S3 or S4. ABDOMEN: Soft, nontender and nondistended. Hyperactive bowel sounds. No rebound or guarding. No gross peritonitis. No gross organomegaly or masses. No Sosa sign or McBurney point tenderness. BACK: No midline or flank tenderness. EXTREMITIES: Equal pulses bilaterally. There is no peripheral clubbing, cyanosis or edema. No focal swelling or erythema. Full range of motion. Grossly neurovascularly intact. NEURO: Alert and oriented. Cranial nerves 2-12 intact. Motor strength in all 4 extremities with 5/5 strength. Sensation grossly intact. Normal speech and gait. SKIN: There is no apparent rash or petechia. The skin is warm and dry. HEMATOLOGIC AND LYMPHATIC: There is no evidence of excessive bruising or lymphedema. No gross cervical, axillary, or inguinal lymphadenopathy. Procedures/MDM Medical Decision Making: Patient symptoms of vomiting diarrhea with viral gastroenteritis. There is low suspicion for abdominal emergencies at this time. Patients abdominal exam is normal at this time. Radiology exams not indicated at this time, no laboratory testing not indicated at this time. There is low suspicion for appendicitis, cholecystitis, abdominal aortic aneurysms or peritonitis at this time. There is low suspicion for sepsis. Patient appears well and is hemodynamically stable. Disposition: Home. Condition: Stable Prescription ibuprofen Zofran bentyl Instructions: Patient is advised to take medications as prescribed. Patient is advised to rest, increase fluid intake and do brat diet for next 1-2 days and progress as tolerated. Patient is advised that if symptoms are worse, severe abdominal pain, uncontrolled vomiting, high fever, severe flank pain, worst signs and symptoms, to return to the emergency department immediately. Otherwise, patient can follow up with primary care doctor in 5-7 days. Disclaimer: Inadvertent spelling and grammatical errors are likely due to EHR/ dictation software use and do not reflect on the overall quality of patient care. Also, please note that the electronic time recorded on this note does not necessarily reflect the actual time of the patient encounter. Departure Diagnosis: Primary Impression: Viral gastroenteritis Condition: Stable Patient Instructions: Gastroenteritis, Viral (6Y-Adult) LUCY BLACKBURN NP Aug 30, 2017 19:04
== END 2017-08-31 06:56 | disposition home or self-care (01) ==
LOC: E/R 17:35
DX: A08.4 Viral intestinal infection, unspecified (principal)
CPT/HCPCS: 99284

== ENCOUNTER 2017-12-02 14:37 | Emergency (ER) | END 2017-12-02 18:17 | disposition home or self-care (01) ==